=== PATIENT | female | born 2005 ===

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

== ENCOUNTER → 2025-01-06 | Outpatient (CLI) | payer BC, OTHER | LOC: LAB SHORT 15:32 → LAB 15:32 | DX: J02.9 Acute pharyngitis, unspecified (principal) | CPT/HCPCS: 87081 ==